=== PATIENT | male | born 1970 | race Caucasian/White ===

== ENCOUNTER 2019-12-20 18:12 | Emergency (ER) | payer SELFPAY ==
[~2019-12-20] VITALS: Ht 180.3 cm; Wt 76.7 kg
--- NOTE | 2019-12-20 18:36 | Emergency Room Report ---
History of Present Illness General Chief Complaint: Abdominal Pain Source: Patient (Abhinav Rodas MD) Present Illness HPI Patient is a 49-year-old male presents after increased dizziness. Prior history of cyclic vomiting syndrome. He reports having multiple episodes of vomiting in the past. Reports having increased nausea and difficulty with dizziness. States he was walking in the hot sun prior to this onset. Reports being homeless. Denies any drug use. States that he smokes marijuana but occasionally. Had been off of his psychiatric medications. States he is recently homeless. (Abhinav Rodas MD) Allergies: Coded Allergies: PENICILLINS (Verified Allergy, Unknown, 12/20/19) COVID-19 Screening Contact w/high risk pt: No Recent Travel to affected area: No Experienced COVID-19 symptoms?: No COVID-19 Testing performed STATION HELPER: No (Abhinav Rodas MD) Patient History Past Medical History: see triage record Reviewed Nursing Documentation: PMH: Agreed; PSxH: Agreed (Abhinav Rodas MD) Nursing Documentation-PMH Past Medical History: No History, Except For History Of Psychiatric Problem: Yes - PTSD (Abhinav Rodas MD) Review of Systems All Other Systems: negative except mentioned in HPI (Abhinav Rodas MD) Physical Exam Vital Signs Date Time Temp Pulse Resp B/P (MAP) Pulse Ox O2 Delivery O2 Flow Rate FiO2 12/20/19 18:25 97.9 79 18 99/79 (86) 99 Room Air Sp02 EP Interpretation: reviewed, normal General Appearance: normal inspection, well appearing, no apparent distress, alert, GCS 15 Head: atraumatic ENT: normal ENT inspection, hearing grossly normal, normal voice Neck: normal inspection, full range of motion, supple, no bony tend Respiratory: normal inspection, lungs clear, normal breath sounds, no respiratory distress, no retraction, no wheezing Cardiovascular #1: regular rate, rhythm, no edema Gastrointestinal: normal inspection, normal bowel sounds, non tender, soft, no guarding, no hernia Genitourinary: no CVA tenderness Musculoskeletal: normal inspection, back normal, normal range of motion Neurologic: alert, responsive, speech normal, normal inspection Psychiatric: normal inspection, judgement/insight normal, mood/affect normal (Abhinav Rodas MD) Medical Decision Making Diagnostic Impression: Primary Impression: Abdominal pain Qualified Codes: R10.84 - Generalized abdominal pain Additional Impression: Dehydration ER Course Patient presented for increased nausea and dizziness. Differential diagnosis includes not limited to dehydration, electrolyte abnormality, urinary infection among others. Patient was noted to have some initial complaints of vomiting as well as dehydration. He was given Ativan due to some agitation. Patient subsequently stated he wanted to see social media marketing manager. Patient was endorsed to Dr. Gutiérrez pending discharge. Labs Test 12/20/19 18:44 White Blood Count 10.2 K/UL (4.8-10.8) Red Blood Count 4.75 M/UL (4.70-6.10) Hemoglobin 14.5 G/DL (14.2-18.0) Hematocrit 43.1 % (42.0-52.0) Mean Corpuscular Volume 91 FL (80-99) Mean Corpuscular Hemoglobin 30.4 PG (27.0-31.0) Mean Corpuscular Hemoglobin Concent 33.5 G/DL (32.0-36.0) Red Cell Distribution Width 11.8 % (11.6-14.8) Platelet Count 289 K/UL (150-450) Mean Platelet Volume 7.3 FL (6.5-10.1) Neutrophils (%) (Auto) 70.1 % (45.0-75.0) Lymphocytes (%) (Auto) 17.0 % (20.0-45.0) Monocytes (%) (Auto) 10.5 % (1.0-10.0) Eosinophils (%) (Auto) 1.2 % (0.0-3.0) Basophils (%) (Auto) 1.3 % (0.0-2.0) Sodium Level 140 MMOL/L (136-145) Potassium Level 3.4 MMOL/L (3.5-5.1) Chloride Level 102 MMOL/L (98-107) Carbon Dioxide Level 27 MMOL/L (21-32) Anion Gap 11 mmol/L (5-15) Blood Urea Nitrogen 15 mg/dL (7-18) Creatinine 1.0 MG/DL (0.55-1.30) Estimat Glomerular Filtration Rate > 60 mL/min (>60) Glucose Level 96 MG/DL (74-106) Calcium Level 8.9 MG/DL (8.5-10.1) Total Bilirubin 0.8 MG/DL (0.2-1.0) Aspartate Amino Transf (AST/SGOT) 36 U/L (15-37) Alanine Aminotransferase (ALT/SGPT) 44 U/L (12-78) Alkaline Phosphatase 48 U/L (46-116) Troponin I 0.006 ng/mL (0.000-0.056) Total Protein 6.9 G/DL (6.4-8.2) Albumin 4.1 G/DL (3.4-5.0) Globulin 2.8 g/dL Albumin/Globulin Ratio 1.5 (1.0-2.7) Thyroid Stimulating Hormone (TSH) 2.141 uiU/mL (0.358-3.740) Salicylates Level 1.8 ug/mL (2.8-20) Urine Opiates Screen Negative (NEGATIVE) Acetaminophen Level < 2 MCG/ML (10-30) Urine Barbiturates Screen Negative (NEGATIVE) Phencyclidine (PCP) Screen Negative (NEGATIVE) Urine Amphetamines Screen Negative (NEGATIVE) Urine Benzodiazepines Screen Negative (NEGATIVE) Urine Cocaine Screen Negative (NEGATIVE) Urine Marijuana (THC) Screen Positive (NEGATIVE) Serum Alcohol < 3 mg/dL (Abhinav Rodas MD) ER Course Patient signed out to me. He presents with abdominal pain. Supposedly had nausea and vomiting but none here. He slept for several hours. Now he woke up walk to the bathroom without any difficulty. Initially said he does not remember what happened but was able to tell the nurse said thing that he did earlier. He does not want to see social media marketing manager anymore. Will discharge home. (Carlton Gutiérrez MD) Last Vital Signs Date Time Temp Pulse Resp B/P (MAP) Pulse Ox O2 Delivery O2 Flow Rate FiO2 12/20/19 18:25 97.9 79 18 99/79 (86) 99 Room Air Status: improved (Abhinav Rodas MD) Status: improved (Carlton Gutiérrez MD) Disposition: HOME, SELF-CARE Condition: Stable Scripts Ondansetron Odt* (ZOFRAN ODT*) 4 Mg Tab.rapdis 4 MG BC EVERY 8 HOURS PRN for Nausea & Vomiting, #10 TAB 0 Refills Prov: Abhinav Rodas MD 12/20/19 Patient Instructions: Abdominal Pain, Adult Additional Instructions: Follow-up with your doctor in 7 days. Return if symptoms worsen. Abhinav Rodas MD Dec 20, 2019 18:36 Carlton Gutiérrez MD Dec 21, 2019 01:28
[2019-12-20 18:45] VITALS: BP 99/79
[2019-12-20] MEDS ORDERED: LORazepam 1mg tab ORAL ONE (18:45)
[2019-12-20 18:56] LABS: BASOPHILS % (AUTO) 1.3 % (0.0-2.0); EOSINOPHILS % (AUTO) 1.2 % (0.0-3.0); HEMATOCRIT 43.1 % (42.0-52.0); HEMOGLOBIN 14.5 G/DL (14.2-18.0); MEAN CORPUSCULAR VOLUME 91 FL (80-99); MONOCYTES % (AUTO) 10.5 % (1.0-10.0); NEUTROPHILS % (AUTO) 70.1 % (45.0-75.0); PLATELET COUNT 289 K/UL (150-450); RED BLOOD COUNT 4.75 M/UL (4.70-6.10); RED CELL DISTRIBUTION WIDTH 11.8 % (11.6-14.8); WHITE BLOOD COUNT 10.2 K/UL (4.8-10.8)
[2019-12-20 19:04] LABS: ANION GAP 11 mmol/L (5-15); BLOOD UREA NITROGEN 15 mg/dL (7-18); CALCIUM 8.9 MG/DL (8.5-10.1); CARBON DIOXIDE 27 MMOL/L (21-32); CHLORIDE 102 MMOL/L (98-107); POTASSIUM 3.4 MMOL/L (3.5-5.1); SODIUM 140 MMOL/L (136-145)
[2019-12-20 19:17] LABS: ALANINE AMINOTRANSFERASE 44 U/L (12-78); ALBUMIN 4.1 G/DL (3.4-5.0); ALBUMIN/GLOBULIN RATIO 1.5 (1.0-2.7); ALKALINE PHOSPHATASE 48 U/L (46-116); ASPARTATE AMINO TRANSFERASE 36 U/L (15-37); BILIRUBIN,TOTAL 0.8 MG/DL (0.2-1.0)
[2019-12-20 20:31] VITALS: BP 106/60
[2019-12-20] MEDS ORDERED: ONDANSETRON ODT4 MG BC (21:21)
[2019-12-20 22:30] VITALS: BP 110/67
[2019-12-21 00:10] VITALS: BP 116/65
[2019-12-21 02:46] VITALS: BP 108/64
[2019-12-21 05:13] VITALS: BP 108/64
[2019-12-21] MEDS ORDERED: IBUPROFEN600 M1 ORAL (11:38)
== END 2019-12-21 05:14 | disposition home or self-care (01) ==
LOC: EMR 19:22
DX: R10.84 Generalized abdominal pain (principal); R11.0 Nausea; R42 Dizziness and giddiness; Z59.0 Homelessness; Z88.0 Allergy status to penicillin
CPT/HCPCS: 36415; 80053; 80307; 84443; 84484; 85025; 96360; 99284; G0480; J7030; J8499

== ENCOUNTER 2019-12-21 11:01 | Emergency (ER) | payer SELFPAY ==
[~2019-12-21] VITALS: Ht 180.3 cm; Wt 72.1 kg
[~2019-12-21 11:01] MED LIST: ONDANSETRON ODT4 MG BC
[2019-12-21] MEDS ORDERED: IBUPROFEN600 M1 ORAL (11:38)
--- NOTE | 2019-12-21 11:54 | Emergency Room Report ---
History of Present Illness General Chief Complaint: Pain Source: Patient Present Illness HPI Disclaimer: Please note that this report is being documented using [employer] technology. This can lead to erroneous entry secondary to incorrect interpretation by the dictating instrument. HPI: 49-year-old male history of anxiety presents due to complaints of back pain. Patient was seen and discharged last night for abdominal pain. He is currently homeless, and return to the ER requesting social work consultation. He then also complained of back pain and requested medications. He denies any acute trauma. Ambulatory on arrival. No fevers. No shortness of breath. PMH: Anxiety PSH: Reviewed Social Hx: Denies smoking drinking or illicit drug use Allergies: Coded Allergies: PENICILLINS (Verified Allergy, Unknown, 12/20/19) COVID-19 Screening Contact w/high risk pt: No Recent Travel to affected area: No Experienced COVID-19 symptoms?: No COVID-19 Testing performed SUPERVISOR SIGN SHOP: No Patient History Reviewed Nursing Documentation: PMH: Agreed; PSxH: Agreed Nursing Documentation-PMH Past Medical History: No History, Except For Review of Systems All Other Systems: negative except mentioned in HPI Physical Exam Vital Signs Date Time Temp Pulse Resp B/P (MAP) Pulse Ox O2 Delivery O2 Flow Rate FiO2 12/21/19 11:05 98.6 76 17 118/80 (93) 96 Room Air Sp02 EP Interpretation: reviewed, normal General Appearance: well appearing, no apparent distress Head: normocephalic, atraumatic Eyes: bilateral eye PERRL, bilateral eye EOMI ENT: hearing grossly normal, moist mucus membranes Neck: full range of motion, supple Respiratory: lungs clear, normal breath sounds, no rhonchi, no respiratory distress, no retraction, no wheezing Cardiovascular #1: normal peripheral pulses, regular rate, rhythm, no murmur Gastrointestinal: non tender, soft, non-distended, no guarding Musculoskeletal: normal inspection, back normal, no lower extremity edema, non- tender Neurologic: alert, oriented x3, no focal defects Skin: normal color, warm/dry Medical Decision Making Diagnostic Impression: Primary Impression: Back pain ER Course Patient presented due to complaints of back pain. Differential included strain , muscle spasm, social issues to name a few. On my exam there is no signs of serious trauma. Spine nontender. Back nontender. Patient neurologically intact, normal gait, low suspicion for serious etiology. Will provide analgesics. Patient was also seen by social work in the ER who did provide outpatient resources. Signs stable. Patient stable for discharge to self-care. Last Vital Signs Date Time Temp Pulse Resp B/P (MAP) Pulse Ox O2 Delivery O2 Flow Rate FiO2 12/21/19 11:05 98.6 76 17 118/80 (93) 96 Room Air Disposition: HOME, SELF-CARE Condition: Stable Scripts Ibuprofen* (MOTRIN*) 600 Mg Tablet 600 MG ORAL Q6H PRN for For Pain, #20 TAB 0 Refills Prov: Faraz Dorantes M.D. 12/21/19 Patient Instructions: Back Pain, Adult, [id number] Additional Instructions: Patient is instructed to follow-up with her primary care doctor, primary care clinic or [facility] in 1 to 2 days. Patient instructed to return for any worsening symptoms or concerns. Disclaimer: Please note that this report is being documented using [employer] technology. This can lead to erroneous entry secondary to incorrect interpretation by the dictating instrument. Faraz Dorantes M.D. Dec 21, 2019 11:54
[2019-12-21 12:10] VITALS: BP 118/80
[2019-12-21 12:35] VITALS: BP 118/80
== END 2019-12-21 12:40 | disposition home or self-care (01) ==
LOC: EMR 11:14
DX: M54.9 Dorsalgia, unspecified (principal); Z59.0 Homelessness; F41.9 Anxiety disorder, unspecified; Z88.0 Allergy status to penicillin
CPT/HCPCS: 99283